=== PATIENT | male | born 1995 | race Hispanic/Latino ===

== ENCOUNTER 2019-11-02 13:05 | Outpatient (CLI) | payer OTHER ==
--- NOTE | 2019-11-02 13:55 | ULT ---
Ultrasound thyroid: 11/02/2019 HISTORY: High serum triiodothyronine (T3) ICD-10: R 79.89 in 24-year-old male. FINDINGS: Isthmus: 0.3 cm AP. Right lobe: 1.4 x 4.2 x 1.6 cm. Left lobe: 1.4 x 4.3 x 1.3 cm. Thyroid parenchymal echogenicity and echotexture are normal. No solid thyroid nodule or cyst. IMPRESSION: Normal.
== END 2019-11-02 13:06 | disposition home or self-care (01) ==
LOC: SCSULT 13:05
PROVIDERS: ATTEND Family Medicine
DX: R94.6 Abnormal results of thyroid function studies (principal)
CPT/HCPCS: 76536